=== PATIENT | female | born 1955 | race Caucasian/White ===

== ENCOUNTER 2018-02-17 09:50 | Observation (INO) | payer BC, OTHER ==
[2018-02-17] MEDS ORDERED: SODIUM CHLORIDE 1,000 ML IV SCH (10:45)
--- NOTE | 2018-02-17 10:54 | PDOC ---
History of Present Illness <Belem Sevilla - Last Filed: 02/17/18 11:50> - History of Present Illness Initial Comments: 02/17/18 11:32 This is a 62 year old female with no PMHx who presents to the ER for LUE hand weakness at 9am. Patient states that she was typing an email when she suddenly had trouble typing. She states that her left hand began feeling weak and clumsy . She also states that when she went to straighten out her hand she noticed that it was very tremulous. She states that it lasted for approximately 15-20 minutes. She states that the tremors seemed to have resolved enr oute to the ER. She states that she has never experienced anything like this before. She also notes some tenderness in her left shoulder but states that has been ongoing since the summer. Pt is not any medications but admits she has not had a physical in more than 2 years. She denies any numbness or tingling sensations. Denies headache, other focal weakness/numbness, CP, SOB, visual sxs, dizziness, N/V/D, abd pain, LE edema, dysuria, frequency, stiff neck. Family History: Mother ? HTN, Father ? glaucoma, Dupuytren's contractures. PCP: Nikki Quinn ([place]) <Nichole Beebe - Last Filed: 02/17/18 14:32> - General Chief Complaint: Weakness Stated Complaint: NUMBNESS Time Seen by Provider: 02/17/18 10:08 NIH Stroke Scale - Last Known Well Date/Time & Onset Date Last Known Well: 02/17/18 Time Last Known Well: 09:00 - Initial Evaluation Level of consciousness: Alert Ask patient the month and their age: Answers both correctly Ask patient to open & close eyes; make fist and let go: Obeys both correctly Best gaze (horizontal eye movement): Normal Visual field testing: No visual field loss Facial paresis (Show teeth/raise eyebrows/close eyes tight): Normal symmetrical movement Motor Function: Left Arm: Normal Motor Function: Right Arm: Normal (extends arm 90 (or 45) degrees for 10 seconds without drift Motor Function: Left Leg: Normal (extends leg 30 degrees for 5 seconds without drift) Motor Function: Right Leg: Normal (extends leg 30 degrees for 5 seconds without drift) Limb Ataxia: No ataxia Sensory(Use pinprick test arms,legs,trunk,face/side to side): Normal Best language (Describe picture, name items, read sentences): No Aphasia Dysarthria (read several words): Normal articulation Extinction and Inattention: No abnormality - Total Score NIH Stroke Scale Score: 0 <Nichole Beebe - Last Filed: 02/17/18 14:32> Past History <Belem Sevilla - Last Filed: 02/17/18 11:50> - Past Medical History COPD: No - Surgical History Abdominal Surgery: Yes - Suicide/Smoking/Psychosocial Hx Smoking History: Never smoked Have you smoked in the past 12 months: No Information on smoking cessation initiated: No Hx Alcohol Use: No Drug/Substance Use Hx: No Substance Use Type: Alcohol <Nichole Beebe - Last Filed: 02/17/18 14:32> - Past Medical History Allergies/Adverse Reactions: Allergies Allergy/AdvReac Type Severity Reaction Status Date / Time No Known Allergies Allergy Verified 02/17/18 09:57 Home Medications: Ambulatory Orders NK [No Known Home Medication] 02/17/18 Review of Systems - Review of Systems Comments:: 02/17/18 11:34 GENERAL/CONSTITUTIONAL: No fever or chills. HEAD, EYES, EARS, NOSE AND THROAT: No change in vision. No ear pain or discharge. No sore throat. GASTROINTESTINAL: No nausea, vomiting, diarrhea or constipation. GENITOURINARY: No dysuria, frequency, or change in urination. CARDIOVASCULAR: No chest pain or shortness of breath. RESPIRATORY: No cough, wheezing, or hemoptysis. MUSCULOSKELETAL: No joint or muscle swelling or pain. No neck or back pain. SKIN: No rash NEUROLOGIC: +L hand weakness. Left hand tremors. No headache, vertigo, loss of consciousness, or change in sensation. ENDOCRINE: No increased thirst. No abnormal weight change. HEMATOLOGIC/LYMPHATIC: No anemia, easy bleeding, or history of blood clots. ALLERGIC/IMMUNOLOGIC: No hives or skin allergy. <Jaime Beebekaveh - Last Filed: 02/17/18 14:32> *Physical Exam - Vital Signs Last Vital Signs Temp Pulse Resp BP Pulse Ox 98 F 89 16 158/89 98 02/17/18 11:27 02/17/18 09:57 02/17/18 09:57 02/17/18 09:57 02/17/18 09:57 <Belem Sevilla - Last Filed: 02/17/18 11:50> - Vital Signs Last Vital Signs Temp Pulse Resp BP Pulse Ox 89 16 158/89 98 02/17/18 09:57 02/17/18 09:57 02/17/18 09:57 02/17/18 09:57 - Physical Exam Comments: 02/17/18 11:35 GENERAL: Awake, alert, and fully oriented, in no acute distress HEAD: No signs of trauma EYES: PERRLA, EOMI, sclera anicteric, conjunctiva clear ENT: Auricles normal inspection, hearing grossly normal, nares patent, oropharynx clear without exudates. Moist mucosa NECK: Normal ROM, supple, no lymphadenopathy, JVD, or masses LUNGS: Breath sounds equal, clear to auscultation bilaterally. No wheezes, and no crackles HEART: Regular rate and rhythm, normal S1 and S2, no murmurs, rubs or gallops ABDOMEN: Soft, nontender, normoactive bowel sounds. No guarding, no rebound. No masses EXTREMITIES: Normal range of motion, no edema. No clubbing or cyanosis. No cords , erythema, or tenderness BACK: No midline spinal tenderness in cervical/thoracic/lumbar region NEUROLOGICAL: Normal speech, cranial nerves intact, negative pronator drift, 5/ 5 strength in all 4 extremities, normal sensation to light touch in all 4 extremities, normal cerebellar exam, normal gait, normal reflexes and tone SKIN: Warm, Dry, normal turgor, no rashes or lesions noted. <Nichole Beebe - Last Filed: 02/17/18 14:32> Heart Score/ECG Review - ECG Intrepretation Comment:: 02/17/18 11:44 Normal sinus rhythm. Possible left atrial enlargement. Vent. rate 85bpm. EKG taken at 10:34:17 on 17-Feb-2018. <Belem Sevilla - Last Filed: 02/17/18 11:50> #1 02/17/18 10:53 Twelve-lead EKG was performed and reviewed by me. Normal sinus rhythm, rate 85. Normal axis and intervals. No ST elevations. Flipped T-wave in lead 3 and T- wave flattening in aVF as well as V3-V6. No previous EKGs to compare. <Nichole Beebe - Last Filed: 02/17/18 14:32> ED Treatment Course - LABORATORY CBC & Chemistry Diagram: 02/17/18 10:50 02/17/18 10:50 - ADDITIONAL ORDERS Additional order review: Laboratory Results 02/17/18 02/17/18 10:50 10:50 PT with INR 10.60 INR 0.90 Sodium 140 Potassium 4.3 Chloride 105 Carbon Dioxide 29 Anion Gap 7 L BUN 20 H Creatinine 0.9 Creat Clearance w eGFR > 60 Random Glucose 105 Calcium 8.9 Total Bilirubin 0.3 AST 32 ALT 49 Alkaline Phosphatase 64 Creatine Kinase 96 Troponin I < 0.02 Total Protein 7.3 Albumin 4.1 Triglycerides 90 Cholesterol 237 H Total LDL Cholesterol 140 H HDL Cholesterol 79 H 02/17/18 10:50 RBC 5.13 MCV 91.1 MCHC 32.3 RDW 13.4 MPV 8.2 Neutrophils % 62.9 Lymphocytes % 25.6 Monocytes % 8.4 Eosinophils % 1.9 Basophils % 1.2 - RADIOLOGY Radiograph Interpretation: CT scan of the brain without intravenous contrast. Mild volume loss without evidence of acute intracranial pathology. Correlate clinically to determine further evaluation at follow-up. Reported by: Cristy Dawn MD. 02/17/18. 02/17/18 11:50 <Belem Sevilla - Last Filed: 02/17/18 11:50> - LABORATORY CBC & Chemistry Diagram: 02/17/18 10:50 02/17/18 10:50 - RADIOLOGY Radiology Studies Ordered: Category Date Time Status HEAD CT (STROKE) [CT] Stat CT Scan 02/17/18 10:45 Ordered <Nichole Beebe - Last Filed: 02/17/18 14:32> Medical Decision Making - Medical Decision Making 02/17/18 10:55 62-year-old female with no significant past medical history presents to emergency department with transient left hand clumsiness and shaking for 15-20 minutes. Vitals unremarkable. Exam unremarkable, patient is currently neurologically intact with an NIH stroke scale of 0. Patient has not seen a primary doctor in 2+ years. Will do a neuro workup as ddx includes TIA vs CVA. Symptoms may also be musculoskeletal given hx L frozen shoulder. Case discussed with Dr. Lewis who will see the patient. Will hold off on TPA for now as NIH stroke scale is 0. 02/17/18 12:56 Dr. Lewis at the bedside evaluating pt. 02/17/18 14:30 Dr. Lewis to order MRIs, recommends overnight admission Case discussed with Dr. Munson, pt accepted for admission Case discussed in detail with admitting physician including history, physical exam and ancillary studies. Admitting physician has assumed care for the patient, will follow all pending diagnostics and will complete the evaluation and treatment. <Nichole Beebe - Last Filed: 02/17/18 14:32> *DC/Admit/Observation/Transfer <Belem Sevilla - Last Filed: 02/17/18 11:50> - Discharge Dispostion Decision to Admit order: Yes - Attestations Physician Attestion: 02/17/18 14:31 I, Dr. Nichole Beebe MD, attest that this document has been prepared under my direction and personally reviewed by me in its entirety. I further attest, that it accurately reflects all work, treatment, procedures and medical decision -making performed by me. <Nichole Beebe - Last Filed: 02/17/18 14:32> Diagnosis at time of Disposition: Left hand weakness - Discharge Dispostion Condition at time of disposition: Stable
[2018-02-17 11:17] LABS: BASO % 1.2 % (0-2.0); EOS % 1.9 % (0-4.5); HEMATOCRIT 46.7 % (32.4-45.2); HEMOGLOBIN 15.1 GM/dL (10.7-15.3); LYMPH % 25.6 % (8-40); MCH 29.4 pg (25.7-33.7); MCHC 32.3 g/dl (32.0-36.0); MEAN CELL VOLUME 91.1 fl (80-96); MEAN PLT VOLUME 8.2 fl (7.5-11.1); MONO % 8.4 % (3.8-10.2); NEUT % 62.9 % (42.8-82.8); PLATELET COUNT 233 K/MM3 (134-434); RBC 5.13 M/mm3 (3.60-5.2); RDW 13.4 % (11.6-15.6); WHITE BLOOD COUNT 6.4 K/mm3 (4.0-10.0)
[2018-02-17 11:22] LABS: ALBUMIN 4.1 g/dl (3.4-5.0); ALK PHOS 64 U/L (45-117); ANION GAP 7 MMOL/L (8-16); BILIRUBIN,TOTAL 0.3 mg/dL (0.2-1); BLOOD UREA NITROGEN 20 mg/dL (7-18); CALCIUM 8.9 mg/dL (8.5-10.1); CHLORIDE 105 mmol/L (98-107); CHOLESTEROL 237 mg/dL (50-200); CO2 29 mmol/L (21-32); CREATININE 0.9 mg/dL (0.55-1.3); GLUCOSE,RANDOM 105 mg/dL (74-106); HDL CHOLESTEROL 79 mg/dL (40-60); POTASSIUM 4.3 mmol/L (3.5-5.1); SGOT/AST 32 U/L (15-37); SGPT/ALT 49 U/L (13-61); SODIUM 140 mmol/L (136-145); TOT PROT 7.3 g/dl (6.4-8.2); TRIGLYCERIDES 90 mg/dL (0-150)
[2018-02-17 11:36] LABS: INR 0.9 (0.83-1.09); PROTHROMBIN TIME (PATIENT) 10.6 SEC (9.7-13.0)
[2018-02-17 12:52] LABS: URINE APPEARANCE CLEAR; URINE BILIRUBIN NEGATIVE (<2.0 mg/dL); URINE COLOR YELLOW; URINE GLUCOSE (UA) NEGATIVE (NEGATIVE); URINE KETONE NEGATIVE (NEGATIVE); URINE LEUK ESTERASE NEGATIVE (NEGATIVE); URINE NITRITE NEGATIVE (NEGATIVE); URINE PROTEIN NEGATIVE (NEGATIVE); URINE UROBILINOGEN NEGATIVE mg/dL (0.2-1.0)
--- NOTE | 2018-02-17 13:15 | CON.NEURO ---
Consult Consult Specialty:: Dali Referred by:: ER Reason for Consultation:: hand weakness - History of Present Illness History of Present Illness: visit very pleasant 62-year-old right-handed female patient with history of mild obesity questionable hypertension presents the emergency room with a chief complaint of sudden onset of left hand clumsiness. 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 Patient claims that the left hand felt funny with shaking! No seizure-like activity noted 70 movement. Patient denies any prior similar symptoms patient with mild neck pain on the left side. In the emergency room patient was back to baseline patient was interviewed by her aat the bedside. According to the patient she has no chest pain or palpitation with difficulty with speech no slurred speech. CAT scan of the head revealed no evidence of acute pathology I review the CAT scan myself. - History Source History Provided By: Patient Limitations to Obtaining History: No Limitations - Alcohol/Substance Use Hx Alcohol Use: No - Smoking History Smoking history: Never smoked Have you smoked in the past 12 months: No Home Medications - Allergies Allergies/Adverse Reactions: Allergies Allergy/AdvReac Type Severity Reaction Status Date / Time No Known Allergies Allergy Verified 02/17/18 09:57 - Home Medications Home Medications: Ambulatory Orders NK [No Known Home Medication] 02/17/18 Family Disease History - Family Disease History Family History: Denies (CVA) Review of Systems - Review of Systems Constitutional: reports: No Symptoms Eyes: reports: No Symptoms Neurological: reports: Dizziness, Headache, Incoordination Physical Exam-Neuro Vital Signs: Vital Signs Temperature 97.9 F 02/17/18 12:27 Pulse Rate 79 02/17/18 12:27 Respiratory Rate 16 02/17/18 12:27 Blood Pressure 166/84 02/17/18 12:27 O2 Sat by Pulse Oximetry (%) 96 02/17/18 12:27 Constitutional: Yes: Well Nourished Neck: Yes: WNL Labs: CBC, BMP 02/17/18 10:50 02/17/18 10:50 INR, PTT INR 0.90 (0.83-1.09) 02/17/18 10:50 - Neuro Exam Level Of Consciousness: Yes: Oriented to Person, Oriented to Place, Oriented to Time Eyes: Yes: PERRLA Speech: WNL Dominant Hand: Right Cranial Nerves II-XII Intact: Yes Gag: Present DTR's: 1+ Left Bicep, 1+ Right Bicep, 1+ Left Tricep, 1+ Right Tricep Response to light touch: Normal Response to pain prick: Normal Response to temperature: Normal Response to vibration: Normal Motor Strength: 3/5: Left Arm, Right Arm, Left Leg, Right Leg Gait: Deferred NIH Stroke Scale - Last Known Well Date/Time & Onset Date Last Known Well: 02/17/18 Time Last Known Well: 09:00 - Initial Evaluation Level of consciousness: Alert Ask patient the month and their age: Answers both correctly Ask patient to open & close eyes; make fist and let go: Obeys both correctly Best gaze (horizontal eye movement): Normal Visual field testing: No visual field loss Facial paresis (Show teeth/raise eyebrows/close eyes tight): Normal symmetrical movement Motor Function: Left Arm: Normal Motor Function: Right Arm: Normal (extends arm 90 (or 45) degrees for 10 seconds without drift Motor Function: Left Leg: Normal (extends leg 30 degrees for 5 seconds without drift) Motor Function: Right Leg: Normal (extends leg 30 degrees for 5 seconds without drift) Limb Ataxia: No ataxia Sensory(Use pinprick test arms,legs,trunk,face/side to side): Normal Best language (Describe picture, name items, read sentences): No Aphasia Dysarthria (read several words): Normal articulation Extinction and Inattention: No abnormality - Total Score NIH Stroke Scale Score: 0 Imaging - Results Cat Scan: Image Reviewed Problem List - Problems (1) TIA (transient ischemic attack) Assessment/Plan: questionable right lacunar stroke with left clumsy hand syndrome. Cervical causalgia Plan 1. Neuro checks every 1 hour. 2. Admit for observation for 24 hours. 3. Weight loss was advised. 4. Healthy lifestyle. 4. MRI of the brain with no contrast. 5. Carotid Doppler. 6. Baby aspirin. 7. SCDs. 7. Physical therapy. 8. Obtain the most recent blood work from the primary care physician. 9. Communication with the primary care physician in [place]. 10. Statin Code(s): G45.9 - TRANSIENT CEREBRAL ISCHEMIC ATTACK, UNSPECIFIED
--- NOTE | 2018-02-17 19:17 | HP ---
Admitting History and Physical - Primary Care Physician PCP: Moe Munson - Admission History of Present Illness: - 62-year-old right-handed female patient with history of mild obesity questionable hypertension presents the emergency room with a chief complaint of sudden onset of left hand clumsiness. 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 Patient claims that the left hand felt funny with shaking! No seizure-like activity noted 70 movement. Patient denies any prior similar symptoms patient with mild neck pain on the left side. In the emergency room patient was back to baseline patient was interviewed by her aat the bedside. - Smoking History Smoking history: Never smoked Have you smoked in the past 12 months: No - Alcohol/Substance Use Hx Alcohol Use: No Home Medications - Allergies Allergies/Adverse Reactions: Allergies Allergy/AdvReac Type Severity Reaction Status Date / Time No Known Allergies Allergy Verified 02/17/18 09:57 - Home Medications Home Medications: Ambulatory Orders NK [No Known Home Medication] 02/17/18 Physical Examination Vital Signs: Vital Signs Temperature 98.3 F 02/17/18 16:59 Pulse Rate 78 02/17/18 17:14 Respiratory Rate 17 02/17/18 17:14 Blood Pressure 150/100 02/17/18 17:14 O2 Sat by Pulse Oximetry (%) 98 02/17/18 17:14 Constitutional: Yes: No Distress HENT: Yes: Atraumatic Neck: Yes: Supple Cardiovascular: Yes: Regular Rate and Rhythm Respiratory: Yes: CTA Bilaterally Gastrointestinal: Yes: Normal Bowel Sounds Extremities: Yes: WNL Edema: No Peripheral Pulses WNL: Yes Neurological: Yes: Alert, Oriented ...Motor Strength: WNL Labs: CBC, BMP 02/17/18 10:50 02/17/18 10:50 Problem List - Problems (1) Left hand weakness Assessment/Plan: resolved now patient works on [employer] possible carpel tunnel neuro eval Code(s): R29.898 - [facility] SYMPTOMS AND SIGNS INVOLVING THE MUSCULOSKELETAL SYSTEM (2) TIA (transient ischemic attack) Assessment/Plan: will observe mri pending Code(s): G45.9 - TRANSIENT CEREBRAL ISCHEMIC ATTACK, UNSPECIFIED Assessment/Plan Laboratory Tests 02/17/18 02/17/18 02/17/18 10:50 10:50 10:50 WBC 6.4 RBC 5.13 Hgb 15.1 Hct 46.7 H MCV 91.1 MCH 29.4 MCHC 32.3 RDW 13.4 Plt Count 233 MPV 8.2 Absolute Neuts (auto) 4.1 Neutrophils % 62.9 Lymphocytes % 25.6 Monocytes % 8.4 Eosinophils % 1.9 Basophils % 1.2 Nucleated RBC % 0 PT with INR 10.60 INR 0.90 Sodium 140 Potassium 4.3 Chloride 105 Carbon Dioxide 29 Anion Gap 7 L BUN 20 H Creatinine 0.9 Creat Clearance w eGFR > 60 Random Glucose 105 Calcium 8.9 Total Bilirubin 0.3 AST 32 ALT 49 Alkaline Phosphatase 64 Creatine Kinase 96 Troponin I < 0.02 Total Protein 7.3 Albumin 4.1 Triglycerides 90 Cholesterol 237 H Total LDL Cholesterol 140 H HDL Cholesterol 79 H Vitamin B12 393 Urine Color Urine Appearance Urine pH Ur Specific [place] Urine Protein Urine Glucose (UA) Urine Ketones Urine Blood Urine Nitrite Urine Bilirubin Urine Urobilinogen Ur Leukocyte Esterase Blood Type Antibody Screen 02/17/18 02/17/18 10:50 12:36 WBC RBC Hgb Hct MCV MCH MCHC RDW Plt Count MPV Absolute Neuts (auto) Neutrophils % Lymphocytes % Monocytes % Eosinophils % Basophils % Nucleated RBC % PT with INR INR Sodium Potassium Chloride Carbon Dioxide Anion Gap BUN Creatinine Creat Clearance w eGFR Random Glucose Calcium Total Bilirubin AST ALT Alkaline Phosphatase Creatine Kinase Troponin I Total Protein Albumin Triglycerides Cholesterol Total LDL Cholesterol HDL Cholesterol Vitamin B12 Urine Color Yellow Urine Appearance Clear Urine pH 6.0 Ur Specific [place] 1.019 Urine Protein Negative Urine Glucose (UA) Negative Urine Ketones Negative Urine Blood Negative Urine Nitrite Negative Urine Bilirubin Negative Urine Urobilinogen Negative Ur Leukocyte Esterase Negative Blood Type O POSITIVE Antibody Screen Negative
[2018-02-17] MEDS ORDERED: ACETAMINOPHEN 325 MG TABLET (FP) PO PRN (19:19)
[2018-02-17 20:47] VITALS: BMI 33.4
[2018-02-17] MEDS: amLODIPine BESYLATE 5 MG TABLET (FP) PO SCH (20:53)
[2018-02-17] MEDS ORDERED: ATORVASTATIN CA 20 MG TABLET (FP) PO SCH (22:00)
[2018-02-18 06:38] VITALS: PULSE 74; TEMP 98.4
[2018-02-18 07:53] LABS: BASO % 0.9 % (0-2.0); EOS % 2.7 % (0-4.5); HEMATOCRIT 45.2 % (32.4-45.2); HEMOGLOBIN 14.9 GM/dL (10.7-15.3); LYMPH % 30.9 % (8-40); MCHC 32.9 g/dl (32.0-36.0); MEAN CELL VOLUME 91.4 fl (80-96); MEAN PLT VOLUME 8.1 fl (7.5-11.1); MONO % 8.5 % (3.8-10.2); PLATELET COUNT 220 K/MM3 (134-434); RBC 4.95 M/mm3 (3.60-5.2); RDW 13.4 % (11.6-15.6); WHITE BLOOD COUNT 5.6 K/mm3 (4.0-10.0)
[2018-02-18 08:12] VITALS: BP 148/66
[2018-02-18 08:52] LABS: ALBUMIN 3.7 g/dl (3.4-5.0); ALK PHOS 57 U/L (45-117); ANION GAP 10 MMOL/L (8-16); BILIRUBIN,TOTAL 0.6 mg/dL (0.2-1); BLOOD UREA NITROGEN 14 mg/dL (7-18); CALCIUM 8.2 mg/dL (8.5-10.1); CHLORIDE 105 mmol/L (98-107); CO2 26 mmol/L (21-32); CREATININE 0.7 mg/dL (0.55-1.3); GLUCOSE,RANDOM 98 mg/dL (74-106); POTASSIUM 4.2 mmol/L (3.5-5.1); SGOT/AST 23 U/L (15-37); SGPT/ALT 42 U/L (13-61); SODIUM 141 mmol/L (136-145); TOT PROT 6.5 g/dl (6.4-8.2)
[2018-02-18] MEDS ORDERED: ASPIRIN COATED 81 MG TABLET.EC PO SCH (10:00)
--- NOTE | 2018-02-18 11:26 | CON.CARD ---
Consult Consult Specialty:: Cardiology Referred by:: Moe Munson MD Reason for Consultation:: TIA - History of Present Illness Chief Complaint: Right hand clumsiness History of Present Illness: 62-year-old right-handed female patient with history of mild obesity, hypertension suspect initially presented the emergency room with a chief complaint of sudden onset of left hand clumsiness since resolved. 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 She denies chest pain, dyspnea or palpitation with difficulty with speech no slurred speech. No events on telemetry. - History Source History Provided By: Patient Limitations to Obtaining History: No Limitations - Past Medical History ...: No - Alcohol/Substance Use Hx Alcohol Use: No - Smoking History Smoking history: Never smoked Have you smoked in the past 12 months: No Home Medications - Allergies Allergies/Adverse Reactions: Allergies Allergy/AdvReac Type Severity Reaction Status Date / Time No Known Allergies Allergy Verified 02/17/18 09:57 - Home Medications Home Medications: Ambulatory Orders NK [No Known Home Medication] 02/17/18 Review of Systems - Review of Systems Neurological: reports: Weakness (Left hand) Vital Signs: Vital Signs Temperature 98.4 F 02/18/18 06:37 Pulse Rate 74 02/18/18 08:11 Respiratory Rate 18 02/18/18 08:11 Blood Pressure 148/66 02/18/18 08:11 O2 Sat by Pulse Oximetry (%) 96 02/18/18 03:18 - Other Data Labs, Other Data: CBC, BMP 02/18/18 05:30 02/18/18 05:30 INR, PTT INR 0.90 (0.83-1.09) 02/17/18 10:50 Troponin, BNP 02/17/18 10:50 Troponin I < 0.02 Troponin, BNP 02/17/18 10:50 Troponin I < 0.02 Imaging - Results MRI: Report Reviewed (Brain MRI: No strokes) Problem List - Problems (1) Left hand weakness Code(s): R29.898 - OTH SYMPTOMS AND SIGNS INVOLVING THE MUSCULOSKELETAL SYSTEM (2) TIA (transient ischemic attack) Code(s): G45.9 - TRANSIENT CEREBRAL ISCHEMIC ATTACK, UNSPECIFIED Assessment/Plan 1. R/o TIA vs cervical causalgia P:1. F/u echo and carotid US 2. D/c planning per neurology 3. Patient will f/u with home visits nurse of her choice as outpatient, consider longer duration arrhythmia monitoring as outpatient. 4. Continue ASA 81 qd, [place] 5/20 qd
[2018-02-18] MEDS: amLODIPine BESYLATE 5 MG TABLET (FP) PO SCH (11:42)
--- NOTE | 2018-02-18 11:50 | EKG ---
Test Reason : Blood Pressure : / mmHG Vent. Rate : 085 BPM Atrial Rate : 085 BPM P-R Int : 148 ms QRS Dur : 082 ms QT Int : 380 ms P-R-T Axes : 046 -14 020 degrees QTc Int : 452 ms NORMAL SINUS RHYTHM POSSIBLE LEFT ATRIAL ENLARGEMENT BORDERLINE ECG NO PREVIOUS ECGS AVAILABLE Confirmed by DARIUSZ CHILDRESS, JONO ([id number]) on 02/18/2018 11:50:31 AM Referred By: Confirmed By:JONO ARZOLA MD
--- NOTE | 2018-02-18 13:06 | ECHO ---
Name: SALVADOR MATAMOROS Exam:Adult Echocardiogram Study Date: 02/18/2018 08:38 AM Age: 62 yrs Reason For Study: CVA Height: 65 in Weight: 195 lb BSA: 2.0 m2 MMode/2D Measurements & Calculations IVSd: 1.0 cm Ao root diam: 2.8 cm LVIDd: 4.8 cm LA dimension: 3.2 cm LVIDs: 3.4 cm LVPWd: 0.81 cm EDV(Teich): 106.9 ml LAV (MOD-bp): 23.6 ml ESV(Teich): 46.5 ml Doppler Measurements & Calculations MV E max benoit: 58.2 cm/sec TR max benoit: 229.4 cm/sec MV A max benoit: 92.2 cm/sec TR max P.0 mmHg MV E/A: 0.63 MV dec time: 0.13 sec Med Peak E' Benoit: 6.6 cm/sec Med E/e': 8.8 Lat Peak E' Benoit: 6.2 cm/sec Lat E/e': 9.4 Procedure A complete two-dimensional transthoracic echocardiogram was performed (2D, M-mode, Doppler and color flow Doppler). Left Ventricle The left ventricular size, thickness and function are normal. The left ventricular ejection fraction is normal. Ejection Fraction = 60-65%. The left ventricular wall motion is normal. Right Ventricle The right ventricle is normal in size and function. Atria Normal left and right atrial size and function. Mitral Valve There is no mitral regurgitation noted. Tricuspid Valve There is trace tricuspid regurgitation. There was insufficient TR detected to calculate RV systolic p ressure. Aortic Valve The aortic valve is trileaflet. No hemodynamically significant valvular aortic stenosis. No aortic regurgitation is present. Pulmonic Valve There is no pulmonic valvular regurgitation. Great Vessels The aortic root is normal size. Pericardium/Pleura There is no pericardial effusion. Interpretation Summary The left ventricular size, thickness and function are normal The right ventricle is normal in size and function. There is trace tricuspid regurgitation. MD Tayo Schrader 02/18/2018 01:06 PM
--- NOTE | 2018-02-18 13:47 | PN ---
Progress Note, Physician History of Present Illness: Events note d Chart reviewed Alert Awake Oriented No event s MRI C Duplex and Echo results noted - Current Medication List Current Medications: Active Medications Acetaminophen (Tylenol -) 650 mg PO Q6H PRN PRN Reason: FEVER Amlodipine Besylate (Norvasc -) 5 mg PO DAILY [facility] Last Admin: 02/18/18 11:42 Dose: 5 mg Aspirin (Ecotrin -) 81 mg PO DAILY [facility] Last Admin: 02/18/18 11:42 Dose: 81 mg Atorvastatin Calcium (Lipitor -) 20 mg PO HS [facility] Last Admin: 02/17/18 22:04 Dose: 20 mg - Objective Vital Signs: Vital Signs Temperature 98.4 F 02/18/18 06:37 Pulse Rate 74 02/18/18 08:11 Respiratory Rate 18 02/18/18 08:11 Blood Pressure 148/66 02/18/18 08:11 O2 Sat by Pulse Oximetry (%) 96 02/18/18 03:18 Constitutional: Yes: Well Nourished Eyes: Yes: WNL Neurological: Yes: Alert, Oriented, Babinski negative ...Motor Strength: WNL Labs: CBC, BMP 02/18/18 05:30 02/18/18 05:30 INR, PTT INR 0.90 (0.83-1.09) 02/17/18 10:50 Problem List - Problems (1) TIA (transient ischemic attack) Assessment/Plan: Neuro ok to go home Code(s): G45.9 - TRANSIENT CEREBRAL ISCHEMIC ATTACK, UNSPECIFIED
--- NOTE | 2018-02-18 14:31 | DS ---
Physical Examination Vital Signs: Vital Signs Temperature 98.4 F 02/18/18 06:37 Pulse Rate 74 02/18/18 08:11 Respiratory Rate 18 02/18/18 08:11 Blood Pressure 148/66 02/18/18 08:11 O2 Sat by Pulse Oximetry (%) 96 02/18/18 03:18 Constitutional: Yes: No Distress HENT: Yes: Atraumatic Neck: Yes: Supple Cardiovascular: Yes: Regular Rate and Rhythm Respiratory: Yes: CTA Bilaterally Gastrointestinal: Yes: Normal Bowel Sounds Extremities: Yes: WNL Edema: No Neurological: Yes: Alert, Oriented Labs: CBC, BMP 02/18/18 05:30 02/18/18 05:30 Discharge Summary Reason For Visit: TRANSIENT ISCHEMIC ATTACK,WEAKNESS OF LEFT HAND Current Active Problems Left hand weakness (Acute) TIA (transient ischemic attack) (Acute) Condition: Stable - Instructions Diet, Activity, Other Instructions: follow up cardiology and neurology as out patient patient like to have her doctors in [place] - Home Medications Comprehensive Discharge Medication List: Ambulatory Orders NK [No Known Home Medication] 02/17/18 cleared by neuro to be dc
== END 2018-02-18 14:53 | disposition home or self-care (01) ==
LOC: JER 09:50 → UNDOADMOB 14:32 → JERBED 14:32 → INTOOBSV 14:32 → J4W 17:30 → JERBED 17:30 → INTOOBSV 19:18 → J4W 19:18 → OBSVTOIN 19:18
PROVIDERS: ADMIT Internal Medicine; ATTEND Internal Medicine
PROC: 3E0337Z Introduction of Electrolytic and Water Balance Substance into Peripheral Vein, Percutaneous Approach (ICD-10-PCS; principal; 2018-02-17)
DX: G45.9 Transient cerebral ischemic attack, unspecified (principal); M62.81 Muscle weakness (generalized); E66.9 Obesity, unspecified; Z68.33 Body mass index [BMI] 33.0-33.9, adult
CPT/HCPCS: 36415; 70450-TC; 70551-TC; 80053; 81003; 82465; 82550; 82607; 83036; 83718; 83721; 84443; 84478; 84484; 85025; 85610; 86593; 86850; 86900; 86901; 93005; 93010; 93306-TC; 93880-TC; 97116-GP; 97161-GP; 99285-25; G0378; J7030